=== PATIENT | male | born 1985 | race Caucasian/White ===

== ENCOUNTER 2018-09-18 09:05 | Day surgery (SDC) | payer BC ==
[~2018-09-18] VITALS: Ht 177.8 cm; Wt 90.7 kg
[~2018-09-18 09:05] MED LIST: CYTOMEL5 MCG PO; LEVOTHYROXINE25 MCG PO; MAGNESIUM500 MG PO; TURMERIC500 M2 PO; VITAMIN D-32000 UNIT PO
--- NOTE | 2018-09-18 11:22 | NUR ---
09/18/18 1122 Giselle Toussaint 1111 PT ARRIVED IN PACU SLEEPY WITH NO C/O'S. BILAT EYES RED. ANESTHESIA AWARE.
--- NOTE | 2018-09-18 13:21 | NUR ---
1200 PT RETURNED FROM PACU, REPORT GIVEN TO JANE AYOUB. PT UP TO RESTROOM WITH ASSIST FROM RN. PER JANE AYOUB PT PAINFUL AND VOMITING WHEN RETURNING FROM RESTROOM, MEDICATIONS GIVEN. AND PARENTS AT BEDSIDE. WILL CONTINUE TO MONITOR PT.
--- NOTE | 2018-09-18 13:28 | NUR ---
1300 IN TO CHECK ON PT, PT RESTING. VITALS OBTAINED. BP REMAINS ELEVATED. PT STATES PAIN IS " A LITTLE BIT BETTER." NO FURTHER NEEDS AT THIS TIME. AT BEDSIDE. CALL LIGHT IN REACH.
--- NOTE | 2018-09-18 14:02 | NUR ---
PT UP WITH ASSIST OF TO BATHROOM. PT TOLERATED WELL. NAUSEA REMAIN, BUT ABSENT OF VOMITING. CHICKEN BROTH AND CRACKERS GIVEN.
--- NOTE | 2018-09-18 14:37 | NUR ---
PT UP TO BATHROOM WITH ASSIST FROM . PT NAUSEATED WHEN RETURNING, VOMITING NOTED. PT BACK TO BED. RESTING. AZO GIVEN FOR BURNING AND URGENCY WITH URINATION. WATER REFILLED. AND MOTHER AT BEDSIDE. CALL LIGHT IN REACH.
--- NOTE | 2018-09-18 15:11 | NUR ---
PT UP TO BATHROOM WITH ASSIST FROM WILL. PT DENIES NAUSEA. PT STATES PAIN "IS A LITTLE BIT BETTER." PT ATTEMPTING TO EAT CRACKERS. IV SL. AND MOTHER AT BEDSIDE. CALL LIGHT IN REACH.
--- NOTE | 2018-09-18 16:14 | NUR ---
IN TO CHECK PT. PT AWAKE, STATING HE IS FEELING BETTER NOW. PT WOULD LIKE TO GO HOME. IV DC'D. PT DRESSING WITH ASSIST FROM . WILL GIVE DISCHARGE INSTRUCTIONS AND PLAN TO DISCHARGE.
--- NOTE | 2018-09-18 16:27 | NUR ---
1530 PT UP TO BATHROOM WITH ASSIST FROM . PT REQUESTING PAIN MEDICATION. WHEN BACK TO ROOM, PT VOMITING. PHENERGAN SUPP GIVEN. WILL CONTINUE TO MONITOR PT.
--- NOTE | 2018-09-19 18:24 | OR ---
[facility] [address] [place], [place] [address] Signed DATE OF OPERATION: 09/18/2018 SURGEON: Gayla Petty MD PREOPERATIVE DIAGNOSES: 1. A 7.5 mm right renal calculus. 2. Intermittent right flank discomfort. POSTOPERATIVE DIAGNOSES: 1. A 7.5 mm right renal calculus. 2. Intermittent right flank discomfort. PROCEDURES: 1. Diagnostic cystoscopy with right retrograde pyelogram. 2. Right flexible nephroureteroscopy with laser lithotripsy and basket extraction of stone fragments. 3. Right ureteral stent insertion. 4. Urethral dilation using Crawford sounds. ANESTHESIA: General. ESTIMATED BLOOD LOSS: Minimal. COMPLICATIONS: None. SPECIMENS: Fragments of right renal calculus, sent to the lab for stone analysis. DRAINS: A 6 x 26 cm double-J ureteral stent inserted in the right ureter. INDICATIONS FOR PROCEDURE: Mr. Gunn is a very pleasant 32-year-old gentleman with a long-standing history of nephrolithiasis. Recently, he has been experiencing intermittent right flank discomfort. He has since undergone imaging, which reveals the presence of an approximately 7.5 mm nonobstructing right renal calculus, along with other stones present in the left kidney. I explained to him that it is possible that his Portions of this report were created using voice recognition software. There may be inadvertent computer error. Please read with context in mind. If there are any questions, please contact me. Electronically Signed By: GAYLA PETTY MD 09/19/18 1824 PATIENT NAME: ROSAMARIA GUNN OPERATIVE REPORT DATE OF : 85 REPORT #: [id number] PHYSICIAN: GAYLA PETTY MD PCP: ASAF LAMA PA-C REPORT IS CONFIDENTIAL AND NOT TO BE RELEASED WITHOUT AUTHORIZATION [facility] [address] [place], [place] [address] Signed intermittent flank discomfort is due to the presence of a relatively large stone in the right renal pelvis. However, I cannot confirm this without removing the stone. After discussion of the risks and benefits of the procedure including the risk of damage to the ureter, bleeding, infection, and failure to resolve his intermittent flank discomfort, the patient elected to undergo right ureteroscopy with laser lithotripsy and basket extraction of his 7.5 mm right renal calculus. OPERATIVE FINDINGS: On cystoscopy, there was no evidence of any suspicious masses, lesions, or stones. Bilateral ureteral orifices are in their normal anatomic location and effluxing clear urine. Right retrograde pyelogram was performed, which revealed a normal caliber ureter throughout the course of the ureter as well as no evidence of any overt filling defects or blunting of the calices in the right kidney. I am unable to see any filling defect consistent with his known right renal calculus. Flexible nephroureteroscopy was performed, which revealed the presence of an approximately 8 mm stone present in the right renal pelvis. This stone fragmented easily with the holmium laser at 8 and 0.8 settings. The stone fragments were then extracted using a Zero tip basket without difficulty. Approximately 97% of the stone burden was successfully extracted from the right kidney today, the remaining being stone dust that should be easily passable. A 6 x 26 cm double-J ureteral stent was inserted into the right collecting system under direct visualization without difficulty. DESCRIPTION OF PROCEDURE: After informed consent was obtained, the patient was taken back to the operating room. [facility] was [facility] to the operating room table where general anesthesia was induced. He was placed in the dorsal lithotomy position and his genitalia were prepped and draped in a standard sterile fashion. Using a 30-degree lens on a 22.5-Canadian introducer, rigid cystoscope was inserted through his urethra and into the bladder under direct visualization. Prior to insertion of the camera, the patient's urethra was dilated from 14-Canadian to 24-Canadian without difficulty. Once inside the bladder, pain and scopic views were obtained. Please see above findings. A cone-tipped catheter was advanced to the level of the right ureteral orifice and a right retrograde pyelogram was performed. Please see above findings. I then passed a 0.035 Sensor wire into the right ureteral orifice and up into the collecting system, and confirmed placement of the wire on fluoroscopy. Over the wire, an 11/13 ureteral access sheath was placed in good position within the right collecting system. Position of the access Portions of this report were created using voice recognition software. There may be inadvertent computer error. Please read with context in mind. If there are any questions, please contact me. Electronically Signed By: GAYLA PETTY MD 09/19/18 1824 PATIENT NAME: ROSAMARIA GUNN OPERATIVE REPORT DATE OF : 85 REPORT #: [id number] PHYSICIAN: GAYLA PETTY MD PCP: ASAF LAMA PA-C REPORT IS CONFIDENTIAL AND NOT TO BE RELEASED WITHOUT AUTHORIZATION [facility] [address] [place] [id number] Signed sheath was confirmed via retrograde pyelogram. An ureteroscope was passed through the sheath and up into the right kidney, and right diagnostic nephroscopy was performed. Please see above findings. The 8 mm stone was located within the right renal pelvis and was fragmented using the holmium laser and a 270 micron fiber. The stone fragmented easily and 97% of stone burden was successfully extracted. Once I was satisfied, all the significant stone burden had been extracted, I flushed the kidney using the ureteroscope, and then slowly removed the ureteroscope and evaluated the proximal 3/4th of the ureter on the way out. I then inserted a Sensor wire through the sheath and into the right renal pelvis, and confirmed placement of the Sensor wire on fluoroscopy. The ureteral access sheath was removed fully intact. Over the wire, a 6 x 26 cm double-J ureteral stent was inserted into the right collecting system under direct visualization. Once the Sensor wire was pulled, an adequate proximal coil was seen within the right renal pelvis along with an adequate distal coil on cystoscopy. The patient's bladder was then drained and the cystoscope was removed. The procedure was terminated. The patient tolerated the procedure well without any complication. He will now be transferred to the postanesthesia care unit in stable condition. DISPOSITION: I discussed the details of today's procedure with the patient's and answered all of her questions. The patient will be sent home today with Bactrim double strength for the next 5 days, along with Percocet 5/325 dispense #20 as needed for pain. The stone fragments are being sent for stone analysis today. He will return to clinic in 3 days to undergo cystoscopy with right ureteral stent extraction. MD TRICE Choi/KAVIN /[id number] Copies: ~ Portions of this report were created using voice recognition software. There may be inadvertent computer error. Please read with context in mind. If there are any questions, please contact me. Electronically Signed By: GAYLA PETTY MD 09/19/18 1824 PATIENT NAME: ROSAMARIA GUNN OPERATIVE REPORT DATE OF : 85 REPORT #: [id number] PHYSICIAN: GAYLA PETTY MD PCP: ASAF LAMA PA-C REPORT IS CONFIDENTIAL AND NOT TO BE RELEASED WITHOUT AUTHORIZATION
== END 2018-09-18 16:20 | disposition home or self-care (01) ==
LOC: DS 09:05 → OPS 09:05
PROVIDERS: Urology
PROC: 0T768DZ Dilation of Right Ureter with Intraluminal Device, Via Natural or Artificial Opening Endoscopic (ICD-10-PCS; 2018-09-18)
PROC: BT1DYZZ Fluoroscopy of Right Kidney, Ureter and Bladder using Other Contrast (ICD-10-PCS; 2018-09-18)
PROC: 0TC38ZZ Extirpation of Matter from Right Kidney Pelvis, Via Natural or Artificial Opening Endoscopic (ICD-10-PCS; principal; 2018-09-18 09:30)
DX: N20.0 Calculus of kidney (principal); F41.9 Anxiety disorder, unspecified; E89.0 Postprocedural hypothyroidism; Z87.442 Personal history of urinary calculi; Z79.899 Other long term (current) drug therapy
CPT/HCPCS: 00918; 74420; 82365; C2617; J0696; J1100; J1170; J1885; J2250; J2405; J2550; J2704; J2765; J3010; J7120; Q9967

== ENCOUNTER 2021-06-03 16:50 | Emergency (ER) | payer BC ==
[~2021-06-03] VITALS: Ht 177.8 cm; Wt 90.7 kg
[2021-06-03] MEDS ORDERED: HYDROCHLOROTH12.5 MG PO (17:17)
== END 2021-06-03 18:32 | disposition home or self-care (01) ==
LOC: ED 16:50
DX: M25.461 Effusion, right knee (principal); Z79.899 Other long term (current) drug therapy
CPT/HCPCS: 73560; 99283-25